=== PATIENT | male | born 1995 | race Two or more races ===

== ENCOUNTER 2018-02-22 00:32 | Emergency (ER) | payer OTHER ==
[2018-02-22] MEDS ORDERED: ACETAMINOPHEN 500 MG TAB PO ONE (01:51)
[2018-02-22] MEDS ORDERED: IBUPROFEN 200 MG TAB PO ONE (01:51)
--- NOTE | 2018-02-22 02:08 | EDPHY ---
H & P Stated Complaint: wrist pain Time Seen by Provider: 02/22/18 00:58 HPI/ROS: HPI: The patient presents with right wrist pain which has been present for the last several hours. The patient was playing goalie in a soccer game when elbow all hit his right hand and caused hyper extension of his wrist. He had pain afterwards which has been constant, achy and throbbing, getting progressively worse. He has no numbness or tingling. He is right-hand dominant. REVIEW OF SYSTEMS Constitutional: No fever, no chills. Eyes: No discharge. ENT: No sore throat. Cardiovascular: No chest pain, no palpitations. Respiratory: No cough, no shortness of breath. Gastrointestinal: No abdominal pain, no vomiting. Genitourinary: No hematuria. Musculoskeletal: No back pain. Skin: No rashes. Neurological: No headache. PMHx: Healthy TRAUMA PHYSICAL General Appearance: Alert, no distress Head: Atraumatic Respiratory: Breathing comfortably Skin: No lacerations, No abrasion Extremities: Right wrist with full range of motion, there is tenderness at the anatomic snuffbox, there is mild edema throughout the wrist and hand, there is brisk cap refill and sensation intact throughout the hand Neurological: A&Ox3, GCS=15,normal motor function with 5/5 strength in all 4 extremities, normal sensory exam Source: Patient Exam Limitations: No limitations - Personal History Current Tetanus/Diphtheria Vaccine: No Current Tetanus Diphtheria and Acellular Pertussis (TDAP): No - Medical/Surgical History Hx Asthma: No Hx Chronic Respiratory Disease: No Hx Diabetes: No Hx Cardiac Disease: No Hx Renal Disease: No Hx Cirrhosis: No Hx Alcoholism: No Hx HIV/AIDS: No Hx Splenectomy or Spleen Trauma: No Other PMH: Denies - Social History Smoking Status: Never smoked Constitutional: Initial Vital Signs Temperature (C) 37.0 C 02/22/18 00:33 Heart Rate 83 02/22/18 00:33 Respiratory Rate 17 02/22/18 00:33 Blood Pressure 134/74 H 02/22/18 00:33 O2 Sat (%) 96 02/22/18 00:33 O2 Delivery Mode Room Air Allergies/Adverse Reactions: No Known Allergies Allergy (Unverified 11/17/11 15:23) Home Medications: Medication Instructions Recorded No Medications [NO HOME 11/17/11 MEDICATIONS] Medical Decision Making - Diagnostics Imaging Results: X-ray right wrist four view shows no fracture, no dislocation, interpreted by me , radiology interpretation is pending. Procedures: SPLINT Procedure: Splint placement. A Velcro thumb spica splint was applied to the right wrist by diane. After application of the splint I returned and re-examined the patient. The splint was adequately immobilizing the joint and distal to the splint the patient's circulation and sensation was intact. Differential Diagnosis: 22-year-old male brought in with right wrist pain for the last several hours after soccer ball hit his right wrist and caused hyper extension. On exam, he is mild edema of the wrist and hand with tenderness in the anatomic snuffbox. X -rays were obtained which show no obvious fracture. Because of risk of occult scaphoid fracture, the patient is placed in a thumb spica splint. I have explained that he needs to follow up for repeat x-rays in 7-10 days with hand surgeon and I have provided him information for this. Other differential diagnoses considered include wrist fracture, wrist sprain. - Data Points Medications Given: Discontinued Medications Acetaminophen (Tylenol) 1,000 mg PO EDNOW ONE Stop: 02/22/18 01:52 Last Admin: 02/22/18 01:56 Dose: 1,000 mg Ibuprofen (Motrin) 400 mg PO EDNOW ONE Stop: 02/22/18 01:52 Last Admin: 02/22/18 01:56 Dose: 400 mg Departure - Departure Disposition: Home, Routine, Self-Care Clinical Impression: Fracture of scaphoid, Wrist pain, acute Condition: Good Instructions: Splint Care (ED), Scaphoid Fracture (ED) Additional Instructions: Please keep the splint on at all times. You should use ice for 20 min at a time several times a day for pain. I have reviewed you're x-ray and I do not see any fracture. The radiologist will look at it tomorrow and we'll call you if they see anything that I have missed. With scaphoid fractures, we do not always see a break in the bone right away. Because these can be serious fractures, we treat with a splint and you will need repeat x-rays in 7-10 days. These can be done in an appointment with the hand surgeon, I have listed his name below. I recommend you take Tylenol 650 mg every 6 hr as needed for pain. Referrals: INGRID HELM [Primary Care Provider] - As per Instructions Ramos Crouch MD [Medical Doctor] - As per Instructions
[2018-02-22 02:16] VITALS: BP 111/69
== END 2018-02-22 02:15 | disposition home or self-care (01) ==
DX: S62.001A Unspecified fracture of navicular [scaphoid] bone of right wrist, initial encounter for closed fracture (principal); X58.XXXA Exposure to other specified factors, initial encounter; Y99.8 Other external cause status; Y93.66 Activity, soccer
CPT/HCPCS: L3807